=== PATIENT | female | born 1955 | race Caucasian/White ===

== ENCOUNTER → 2019-02-15 | Outpatient (CLI) | payer MEDICARE | LOC: MC.RAD 08:58 | DX: Z12.31 Encounter for screening mammogram for malignant neoplasm of breast (principal) ==

== ENCOUNTER → 2020-04-16 | Outpatient (CLI) | payer MEDICARE | LOC: MC.RAD 04-03 15:30 | DX: Z12.31 Encounter for screening mammogram for malignant neoplasm of breast (principal) ==

== ENCOUNTER → 2020-12-19 | Outpatient (CLI) | payer MEDICARE | LOC: COL.VAS 12:47 | DX: R42 Dizziness and giddiness (principal); R00.2 Palpitations ==

== ENCOUNTER → 2021-04-20 | Outpatient (CLI) | payer MEDICARE | LOC: MC.RAD 08:53 | DX: Z12.31 Encounter for screening mammogram for malignant neoplasm of breast (principal) ==